=== PATIENT | male | born 1980 | race Caucasian/White ===

== ENCOUNTER 2016-07-26 11:38 | Inpatient (IN) | payer BC ==
[2016-07-26] MEDS ORDERED: PROMETHAZINE HCL INJ 25 MG/ML VIAL ONE (11:43)
--- NOTE | 2016-07-26 11:43 | ED.PDOC ---
History of Present Illness - General Chief Complaint: General Stated Complaint: vomiting blood Time Seen by Provider: 07/26/16 11:41 Source: patient, RN notes reviewed Exam Limitations: no limitations - History of Present Illness Initial Comments: Johnny Marin 35 y/o male was brought by his dad to [facility] ER after he was found on the floor vomiting and with blood tinged emesis.According to mom his co worker told her that he was talking incoherently at work and went to the bathroom and was there for almost an hour and someone went to see him and was found on the floor throwing up. He stated that he had left sided throbbing headache on his way home from work which went away after he slept stating he has the right sided retrorbital headache when his blood pressure go up.He ate dinner went back to sleep.Then this am went to work then developed above symptoms.Denies any chest pain,headache blurry vision,abdominal pain. Timing/Duration: 1-3 hours, constant Severity: moderate Improving Factors: nothing Worsening Factors: nothing Associated Symptoms: denies symptoms Allergies/Adverse Reactions: Allergies NO KNOWN ALLERGY Allergy (Verified 07/26/16 12:07) Home Medications: Ambulatory Orders Lisinopril 40 mg PO DAILY 07/26/16 Review of Systems - Review of Systems Constitutional: States: no symptoms reported EENTM: States: no symptoms reported Respiratory: States: no symptoms reported Cardiology: States: no symptoms reported Gastrointestinal/Abdominal: States: see HPI Genitourinary: States: no symptoms reported Musculoskeletal: States: no symptoms reported Skin: States: no symptoms reported Neurological: States: no symptoms reported Endocrine: States: no symptoms reported Hematologic/Lymphatic: States: no symptoms reported Past Medical History (General) - Patient Medical History Hx Hypertension: Yes Surgical History: appendectomy - Social History Hx Tobacco Use: No Hx Alcohol Use: No Hx Substance Use: No Hx Depression: No Family Medical History - Family History Father Hx Family Hypertension: Yes Hx Family Diabetes: Yes Hx Family Cancer: No Physical Exam - Physical Exam General Appearance: Alert, No apparent distress Eye Exam: bilateral normal Ears, Nose, Throat: hearing grossly normal, normal ENT inspection, normal pharynx Neck: non-tender, full range of motion, supple Respiratory: chest non-tender, lungs clear, normal breath sounds, no respiratory distress Cardiovascular/Chest: normal peripheral pulses, regular rate, rhythm, no murmur Peripheral Pulses: radial,right: 2+, radial,left: 2+ Gastrointestinal/Abdominal: normal bowel sounds, non tender, soft, no organomegaly Rectal Exam: normal exam, normal rectal tone, heme negative stool Back Exam: normal inspection, no CVA tenderness, no vertebral tenderness Extremity: normal range of motion, non-tender, normal inspection Neurologic: no motor/sensory deficits, alert, normal mood/affect, oriented x 3 Skin Exam: normal color, warm/dry Lymphatic: no adenopathy Progress - Progress Progress: 07/26/16 13:27 Vital Signs - 8 hr 07/26/16 11:38 Temperature 96.7 F L Pulse Rate 86 Pulse Rate [ 86 Left Radial] Respiratory 26 H Rate Blood Pressure 142/53 [Right Arm] O2 Sat by Pulse 95 Oximetry - Results/Orders Results/Orders: 07/26/16 11:43 URINE DRUG SCREEN, 7 ASSAY Stat URINALYSIS Stat 07/26/16 11:45 EKG STAT 07/26/16 12:51 Potassium Chloride Inj 40 Meq 40 meq Sodium Chloride 0.9% 250Ml [NS 250ml] 250 ml IVPB ONCE 07/26/16 13:03 MAGNESIUM Stat 07/26/16 13:27 ED Intent to Admit Routine Laboratory Results WBC 9.0 K/mm3 (4.8-10.8) 07/26/16 12:05 RBC 5.37 M/mm3 (4.70-6.10) 07/26/16 12:05 Hgb 15.1 gm/dL (14.0-18.0) 07/26/16 12:05 Hct 44.9 % (42.0-52.0) 07/26/16 12:05 MCV 83.6 fl (80.0-94.0) 07/26/16 12:05 MCH 28.0 pg (27.0-31.0) 07/26/16 12:05 MCHC 33.5 g/dL (33.0-37.0) 07/26/16 12:05 RDW 15.3 % (11.5-14.5) H 07/26/16 12:05 Plt Count 182 K/mm3 (130-400) 07/26/16 12:05 MPV 9.5 fl (7.40-10.4) 07/26/16 12:05 Absolute Neuts (auto) 5.10 K/uL (1.8-6.8) 07/26/16 12:05 Absolute Lymphs (auto) 3.00 K/uL (1.0-3.4) 07/26/16 12:05 Absolute Monos (auto) 0.60 K/uL (0.2-0.8) 07/26/16 12:05 Absolute Eos (auto) 0.30 K/uL (0.0-0.4) 07/26/16 12:05 Absolute Basos (auto) 0.10 K/uL (0.0-0.1) 07/26/16 12:05 Neutrophils % 56.1 % (42.0-78.0) 07/26/16 12:05 Lymphocytes % 33.4 % (20.0-50.0) 07/26/16 12:05 Monocytes % 6.6 % (2.0-9.0) 07/26/16 12:05 Eosinophils % 2.9 % (1.0-5.0) 07/26/16 12:05 Basophils % 1.0 % (0.0-2.0) 07/26/16 12:05 PT 11.7 SECONDS (9.4-12.5) 07/26/16 12:05 INR 1.040 07/26/16 12:05 Sodium 140 mmol/L (135-145) 07/26/16 12:05 Potassium 2.6 mmol/L (3.6-5.0) L 07/26/16 12:05 Chloride 106 mmol/L (101-111) 07/26/16 12:05 Carbon Dioxide 21 mmol/L (21-31) 07/26/16 12:05 Anion Gap 15.6 (12-18) 07/26/16 12:05 BUN 11 mg/dL (7-18) 07/26/16 12:05 Creatinine 0.75 mg/dL (0.6-1.3) 07/26/16 12:05 BUN/Creatinine Ratio 14.7 (10-20) 07/26/16 12:05 POC Glucose 123 mg/dL (70-105) H 07/26/16 12:17 Random Glucose 153 mg/dL (70-105) H 07/26/16 12:05 Serum Osmolality 281.8 mOsm/L (275-295) 07/26/16 12:05 Calcium 8.8 mg/dL (8.4-10.2) 07/26/16 12:05 Magnesium Cancelled 07/26/16 12:05 Total Bilirubin 0.9 mg/dL (0.2-1.0) 07/26/16 12:05 AST 106 IU/L (10-42) H 07/26/16 12:05 ALT 162 IU/L (10-60) H 07/26/16 12:05 Alkaline Phosphatase 82 IU/L (42-121) 07/26/16 12:05 Creatine Kinase 86 IU/L (38-174) 07/26/16 12:05 CK-MB (CK-2) 1.0 ng/mL (0.0-4.4) 07/26/16 12:05 CK-MB (CK-2) % Not Reportable 07/26/16 12:05 Troponin I 0.00 ng/mL (0.01-0.05) L 07/26/16 12:05 Serum Total Protein 7.7 gm/dL (6.4-8.2) 07/26/16 12:05 Albumin 4.2 g/dl (3.2-5.5) 07/26/16 12:05 Globulin 3.5 gm/dL (2.3-3.5) 07/26/16 12:05 Albumin/Globulin Ratio 1.2 (1.1-1.9) 07/26/16 12:05 Lipase 20 U/L (22-51) L 07/26/16 12:05 Stool Occult Blood Negative 07/26/16 12:54 Ethyl Alcohol 214.60 mg/dL (0-79) H* 07/26/16 12:05 - EKG/XRAY/CT EKG: Sinus, no ST T wave changes Comments: heart rate-86 XRAY: chest - no acute abnormalities CT Ordered: Yes - head no acute brain abnormalities/radiologist Departure - Departure Clinical Impression: Hypokalemia Hematemesis/vomiting blood Qualifiers: Nausea presence: with nausea Qualified Code(s): K92.0 - Hematemesis; R11.0 - Nausea Headache Qualifiers: Headache type: unspecified Headache chronicity pattern: unspecified pattern Intractability: not intractable Qualified Code(s): R51 - Headache Time of Disposition: 13:29 - D/W Dr. Onofre-Hospitalist for admit Disposition: Admit Patient Condition: Fair Referrals: Felicia Dowell NP [Primary Care Provider] - 1-2 Weeks Home Medications: Ambulatory Orders Lisinopril 40 mg PO DAILY 07/26/16 Decision To Admit - Decistion To Admit Decision to Admit Reason: Admit from ER - low potassium and hematemesis Decision to Admit Date: 07/26/16 Decision to Admit Time: 13:26
[2016-07-26] MEDS ORDERED: PROMETHAZINE HCL INJ 25 MG/ML VIAL IM ONE (11:45)
[2016-07-26] MEDS ORDERED: PANTOPRAZOLE INJECTION 80 MG in SODIUM CHLORIDE 0.9% 100ML 80 ML IVPB ONE (11:46)
[2016-07-26] MEDS ORDERED: LACTATED RINGERS 1,000 ML IVS ONE (11:46)
[2016-07-26] MEDS ORDERED: SODIUM CHLORIDE 0.9% 100ML 100 ML IVPB ONE ×2 (12:13→16:01)
[2016-07-26] MEDS ORDERED: PANTOPRAZOLE SODIUM IV 40 MG VIAL ONE (12:13)
--- NOTE | 2016-07-26 12:44 | RAD ---
EXAM DESCRIPTION: Chest,1 View CLINICAL HISTORY: 79 years Male, nausea IMPRESSION: Cardiomegaly. Pacing device noted. Chronic bronchopulmonary changes seen within bilateral lung bases with infiltrates versus small right pleural effusion. Likely bronchiectasis seen within the right upper lobe. Electronically signed by: Suleiman Velez MD 07/26/2016 8:39 AM CDT
--- NOTE | 2016-07-26 12:48 | CT ---
EXAM DESCRIPTION: Head CLINICAL HISTORY: 35 years, Male, pain COMPARISON: None. FINDINGS: Unenhanced images through the brain. This examination was performed according to our departmental dose optimization program, which includes automatic exposure control, adjustment of the MA and/or kV according to the patient size and/or use of iterative reconstruction technique. No intracranial hemorrhage or mass. Ventricles and sulci unremarkable. Moderate ethmoid sinus mucosal thickening. IMPRESSION: Unremarkable evaluation the brain. Some moderate ethmoid sinus disease present. No air-fluid levels visualized to suggest acute sinusitis Electronically signed by: Naif Botello MD 07/26/2016 12:47 PM CDT
[2016-07-26] MEDS ORDERED: POTASSIUM CHLORIDE INJ 40 MEQ 40 MEQ in SODIUM CHLORIDE 0.9% 250ML 250 ML IVPB ONE (12:51)
[2016-07-26] MEDS ORDERED: POTASSIUM CHLORIDE INJ 20 MEQ 20 MEQ in SODIUM CHLORIDE 0.9% 1000ML 1,000 ML IVS PRN (13:26)
[2016-07-26] MEDS ORDERED: SODIUM CHLORIDE 0.9% (FLUSH) 10 ML SYG IV PRN ×2 (13:42→13:46)
[2016-07-26] MEDS ORDERED: ONDANSETRON INJ 4 MG/2 ML VIAL IV PRN (13:46)
[2016-07-26] MEDS ORDERED: MAGNESIUM HYDROXIDE 30 ML UD PO PRN (13:46)
[2016-07-26] MEDS ORDERED: KCL 20 MEQ/NS 1,000 ML IVS PRN ×2 (13:46→13:55)
[2016-07-26] MEDS ORDERED: KCL 40 MEQ/WATER FOR INJECTION 40 MEQ in PREMIX BAG 1 BAG IVPB ONE (13:54)
[2016-07-26] MEDS ORDERED: THIAMINE HCL INJ 100 MG/ML VIAL IV SCH (14:00)
[2016-07-26] MEDS ORDERED: IV SET AND CAP CHANGE INJ INJ SCH ×2 (14:00)
--- NOTE | 2016-07-26 14:06 | RAD ---
EXAM DESCRIPTION: Chest,1 View CLINICAL HISTORY: 35 years Male, acute onset of chest. IMPRESSION: Single view of the chest demonstrates clear lungs. No pleural effusion or pneumothorax. Heart size is unremarkable. Electronically signed by: Suleiman Velez MD 07/26/2016 2:05 PM CDT
--- NOTE | 2016-07-26 14:11 | HP ---
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 He apparently was up at about 2:30 this morning and drank 4 fingers of whiskey and went to sleep. He awoke at 7:30 and preceded to go to his bank to open the door at about 8:00 o'clock this morning. He went over to his mother's store across the street and got a sweet and an unsweetened tea for a couple of his fellow bank workers and returned to the bank to get ready to open the doors by 9 :00 o'clock. At 8:45 he went into the restroom at the bank and was awakened while being on the floor having gone to the bathroom with his britches still unconnected and people were asking how he was doing. He had been vomiting at the commode and was very foggy-headed. He was able to open the door and they were able to help him to get into a rolling office chair and he was helped to go to the Emergency Room. Even in the Emergency Room his thinking was foggy. In the Emergency Room he was found to have a very high level of alcohol in his blood at 215. No other drugs on under the service of evident. His potassium was very low at 2.6 requiring specific intervention so he was admitted to the hospital with therapy in progress. No previous history of similar symptoms in the past. He admits that he is very tired all the time and as soon as he gets home from work he usually sleeps for awhile, wakes up and then goes back to sleep at a later time but still feels very tired most all the time. He is admitted to the hospital for parenteral treatment of the hypokalemia as well as further evaluation to eval for reasons why the potassium is so low as well as why the alcohol blood level was so high literally 10 hours after drinking a couple of hard alcohol doses. ALLERGIES: PENICILLIN. MEDICATIONS: 1. Lisinopril 40 mg combined with Hydrochlorothiazide of an undetermined amount and it comes in the form of a 20 mg lisinopril tablet which he takes 2 of them which would also double the Hydrochlorothiazide dose of the combination medication. 2. Cholesterol pill. PAST SURGICAL HISTORY: 1. Appendectomy in June 1998. FAMILY HISTORY: Positive for cancer, diabetes, hypertension, chronic obstructive pulmonary disease. PAST MEDICAL HISTORY:: 1. Hypertension which gives him a headache at times when it is especially bad. SOCIAL HISTORY: He works as a banker. He smoked for about 2 years while in the back in 1998 to 2000. REVIEW OF SYSTEMS: VITAL SIGNS: Weight has been over 300 pounds for the last several years. HEENT : Hearing and vision is fairly good. No fever or chills. Difficulty breathing sometimes like he has congested nose for which he takes Dristan or Afrin for to open his nasal passages. LUNGS: Shortness of breath but no coughing. CARDIOVASCULAR: No significant chest pains or palpitations. ABDOMEN: Significant nausea and vomiting noted today but none present at the present time. Abdomen is quite large. No constipation. He does have diarrhea at times , especially aggravated by greasy, spicy foods with occasional blood in his bowel movements. No specific workup otherwise noted in the past. EXTREMITIES: Fairly well formed. NEUROLOGICAL: Generally very weak and history of headaches. PHYSICAL EXAMINATION: VITAL SIGNS: Afebrile. Blood pressure ranges between 128/82 to 149/91. Respirations initially were 26, down to 20, room air saturation was down to 86 up to 97% on room air. His weight is 144 kilos. GENERAL: The patient was noticeably lethargic and somewhat obtunded earlier in the Emergency Room but after abdominal ultrasound and in the hospital itself , even he admitted that he now knows what is going on more clearly and he appears to be normal and more alert and oriented and fully coordinated. HEENT: Unfortunate, though he does have some nasal obstruction.. NECK: Supple, CHEST: Lungs have diminished breath sounds. CARDIOVASCULAR: Heart tones are somewhat distant. No chest pain. ABDOMEN: Very obese, large, distention, no tenderness upon even deep palpation. No organomegaly appreciated.. EXTREMITIES: Well formed. No pedal, no calf tenderness upon compression. Good range of motion. NEUROLOGIC: No focal neurological deficits. The patient is awake, alert, and oriented and communicative. LABORATORY: White count is 9,000, hemoglobin 15.1. INR 1.04. Chemistries show potassium is very low at 2.6, C02 of 21, BUN 11, glucose 123 and up to 153. Calcium 8.8, AST 106, ALT 162 and elevated. Troponin 0. Albumin 4.2 and lipase 20. Magnesium 2.1. Urinalysis clean. Occult blood negative and ethanol level 215. Urine drug screen otherwise negative. No cultures obtained. Head scan and chest x-ray failed to reveal any significant abnormalities. Abdominal ultrasound shows dilation of the common bile duct with widespread fatty infiltration of the liver with no evidence of acute cholecystitis otherwise evident. ASSESSMENT: 1. Acute syncopal episode with loss of consciousness with amnesia with no evidence head injury. 2. Significant symptomatic hypokalemia possibly aggravated by the vomiting yet probably has a relationship to the increased dose of Hydrochlorothiazide used as part of his antihypertensive program. 3. Acute ethanol toxicity. 4. Acute alcoholic gastritis. 5. Elevated liver enzymes. 6. Chronic fatigue, rule out hypothyroidism, physical deconditioning versus significant sleep apnea contributing. 7. Dilated common duct. 8. Marked exogenous obesity no doubt contributing to a possible underlying condition of sleep apnea. 9. History of hypertension on medication treatment. 10. Mild sinusitis with chronic nasal constrictive medication usage. PLAN: The patient is admitted to the hospital for parenteral therapy and supplementation of the significant hypokalemic state. Fluids IV given, special attention to observe for improvement in mental functioning. Carafate and Prilosec are used for the significant gastritis possibly contributing o the nausea and vomiting. Will arrange with respiratory therapy department to get a sleep apnea study with a sleep study as soon as possible. Encouraged to stop all alcohol which will help the fatty infiltration of the liver the elevated liver enzymes, dilated common duct, etc. Close followup of the blood pressure. Stop Hydrochlorothiazide and continue with potassium supplementation. Reevaluation in the morning. #[id number] [facility]
--- NOTE | 2016-07-26 15:09 | US ---
Procedure: US ABDOMEN LIMITED Exam Date: 07/26/2016 Ordering Provider: RENA STRONG MD Clinical Indication: vomiting, hypokalemia,abd pain,GB disease? Comparison: None Technique: Real-time ultrasonography was obtained over the abdominal viscera and retail service representative images were recorded. Findings: The liver is normal in size and contour. There is diffuse increased echogenicity of the liver consistent with fatty infiltration. There are no intrahepatic masses. There is no intrahepatic ductal dilatation. The gallbladder is normal in size and appearance. There are no gallstones. There is no gallbladder wall thickening or pericholecystic fluid. Negative Vaca's. The extrahepatic common duct is dilated in size measuring 11 mm. The visualized portions of the pancreas are normal. There is no ascites. Impression: 1. Dilatation of the common bile duct. No obstructing mass lesions or stones are visualized. Consider further evaluation with ERCP or MRCP 2. Hepatic steatosis. 3. No evidence of acute cholecystitis. Electronically signed by: Rohan Urbano MD 07/26/2016 3:09 PM CDT
[2016-07-26] MEDS: SUCRALFATE 1 GM/10 ML 1 GM UD PO SCH ×2 (15:52→20:36)
[2016-07-26] MEDS: PRENATAL MULTIVIT-MIN W/FE-FA 1 EA TAB PO SCH ×2 (15:52→20:36)
[2016-07-26] MEDS ORDERED: THIAMINE HCL INJ 100 MG/ML VIAL ONE (16:01)
[2016-07-26] MEDS: THIAMINE HCL INJ 100 MG in SODIUM CHLORIDE 0.9% 100ML 100 ML IVPB SCH (16:22)
[2016-07-26] MEDS: ALBUTEROL SULFATE 2.5 MG/3 ML VIAL NEB SCH ×3 (16:32→21:03)
[2016-07-26] MEDS: amLODIPine BESYLATE 5 MG TAB PO SCH (18:16)
[2016-07-26] MEDS ORDERED: ACETAMINOPHEN 325 MG TAB PO PRN (19:10)
[2016-07-26] MEDS ORDERED: OMEPRAZOLE CAP 20 MG CAP ONE (20:18)
[2016-07-26] MEDS: LISINOPRIL 10 MG TAB PO SCH (20:36)
[2016-07-27] MEDS ORDERED: POTASSIUM CHLORIDE 10 MEQ TAB PO SCH ×2 (00:30→17:00)
[2016-07-27] MEDS: SUCRALFATE 1 GM/10 ML 1 GM UD PO SCH ×3 (06:07→15:54)
[2016-07-27] MEDS ORDERED: OMEPRAZOLE CAP 20 MG CAP PO SCH (06:30)
[2016-07-27] MEDS ORDERED: THIAMINE HCL INJ 100 MG/ML VIAL ONE ×2 (08:12→08:17)
[2016-07-27] MEDS ORDERED: SODIUM CHLORIDE 0.9% 100ML 100 ML IVPB ONE (08:13)
[2016-07-27] MEDS: LISINOPRIL 10 MG TAB PO SCH (08:28)
[2016-07-27] MEDS: amLODIPine BESYLATE 5 MG TAB PO SCH (08:28)
[2016-07-27] MEDS: THIAMINE HCL INJ 100 MG in SODIUM CHLORIDE 0.9% 100ML 100 ML IVPB SCH (08:31)
[2016-07-27] MEDS: PRENATAL MULTIVIT-MIN W/FE-FA 1 EA TAB PO SCH (08:32)
[2016-07-27] MEDS: ALBUTEROL SULFATE 2.5 MG/3 ML VIAL NEB SCH ×2 (08:34→13:29)
[2016-07-27] MEDS ORDERED: LISINOPRIL 10 MG TAB PO SCH (09:00)
[2016-07-27 10:49] VITALS: BP 145/93; TEMP 97.1; O2SAT 97
--- NOTE | 2016-07-27 20:03 | DS ---
DISCHARGE DIAGNOSIS: 1. Acute syncopal episode with loss of consciousness and amnesia with no evidence of head injury. 2. Significant symptomatic hypokalemia possibly aggravated by the vomiting yet probably as a relationship to fairly large doses of Hydrochlorothiazide combined with the Lisinopril in his antihypertensive treatment program. 3. Acute ethanol toxicity. 4. Acute alcoholic gastritis. 5. Elevated liver enzymes showing improvement. 6. Chronic fatigue with probable physical deconditioning contributing significantly, yet the possibility of chronic sleep apnea and poor quality of sleep must be considered and evaluated for. 7. Dilated common duct with followup suggested and a low fat diet. 8. Marked exogenous obesity no doubt contributing to possible underlying condition of sleep apnea. 9. History of hypertension on medication treatment. 10. Mild sinusitis with chronic nasal constrictive medication usage. 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 It was at this time that he expressed confusion as to where he was and the situation that he was under, and he was brought by ambulance to the [facility] Even in the E[facility] his recollection and memory is sketchy until approximately an hour after he was admitted to the hospital for continued treatment course. In the Emergency Room, he was found to have a potassium very low at 2.6 with a high alcohol level, elevated liver enzymes and a confusion state. He was admitted to the hospital for stabilization with supplementation of the potassium, some fluid as well because of the vomiting, and neuro vitals, and close followup and support. LABORATORY: White count 9,000, hemoglobin 15.1. INR of 1.04. Chemistries showed initial potassium of 2.6 and with supplementation it was up to 3.6, BUN 10, creatinine 0.74, glucose was 153, calcium 8.8. Liver enzymes were elevated with AST 106 down to 88 and ALT 162 down to 134 with bilirubin of 1.4. Troponin was zero. Beta natriuretic peptide 15.5. Albumin 3.7, TSH 0.69, hemoglobin A1c 5.5. Urinalysis clean. Stool guaiac on 1 test was negative. Ethyl alcohol level 215 and urine drug screen negative. No cultures obtained. RADIOLOGY: X-ray of the head and chest showed no acute findings. Abdominal ultrasound did show some dilation of the common duct up to 11 mm with some hepatic fatty infiltration. HOSPITAL COURSE: The patient was feeling much improved on the day of discharge. He had increased activity and was observed to tolerate it well. His diet was advanced to a soft, low fat diet to which he did tolerate it quite well. His family is present and will continue to assist with watching him. He is advised that he could go back to work on Monday. PLAN: The patient is discharged home to have followup with Nelly Pérez this next week with a repeat blood study for electrolytes to follow the potassium level. To avoid alcohol. Closely monitor the blood pressure. Start blood pressure control by Lisinopril alone and stopping the Hydrochlorothiazide. To take 20 mg Lisinopril daily but to increase to twice a day if needed. May also try Norvasc 5 mg at evening time to assist with blood pressure control with the Lisinopril. Try multivitamin daily. Be active and continue with a good weight control program, and proceed with a sleep study to be scheduled to rule out sleep apnea causing weakness and marked sleepiness during the day. Return if not improving. #[id number] [facility]
== END 2016-07-27 15:30 | disposition home or self-care (01) | DRG 392 ==
LOC: ER 11:38 → MS 14:09 → OBSVTOIN 14:09
PROVIDERS: ADMIT Emergency Medicine; ATTEND Emergency Medicine
DX: K29.20 Alcoholic gastritis without bleeding (principal); K92.0 Hematemesis; Z68.42 Body mass index [BMI] 45.0-49.9, adult; T51.0X1A Toxic effect of ethanol, accidental (unintentional), initial encounter; E87.6 Hypokalemia; I10 Essential (primary) hypertension; R74.8 Abnormal levels of other serum enzymes; R53.82 Chronic fatigue, unspecified; J32.9 Chronic sinusitis, unspecified; R51 Headache; Y90.7 Blood alcohol level of 200-239 mg/100 ml; Y92.009 Unspecified place in unspecified non-institutional (private) residence as the place of occurrence of the external cause; Z87.891 Personal history of nicotine dependence; Z88.0 Allergy status to penicillin; Z79.899 Other long term (current) drug therapy; E66.9 Obesity, unspecified; R55 Syncope and collapse

== ENCOUNTER → 2016-08-20 | Outpatient (CLI) | payer BC | END | disposition home or self-care (01) | LOC: YCFC.O 09:17 | PROVIDERS: ATTEND Nurse Practitioner Family | DX: E89.6 Postprocedural adrenocortical (-medullary) hypofunction (principal); K76.0 Fatty (change of) liver, not elsewhere classified; E78.2 Mixed hyperlipidemia ==

== ENCOUNTER → 2016-10-17 | Outpatient (CLI) | payer BC | LOC: LAB.O 11:00 | PROVIDERS: ATTEND Internal Medicine Gastroenterology | DX: R94.5 Abnormal results of liver function studies (principal) ==

== ENCOUNTER → 2016-10-19 | Outpatient (CLI) | payer BC ==
--- NOTE | 2016-10-20 10:41 | MRI ---
EXAM DESCRIPTION: Abdomen MRI Abdomen CLINICAL HISTORY: 36 years, Male, GALLBLADDER DISORDER COMPARISON: Ultrasound examination July 26 FINDINGS: Axial T1, T2, diffusion and phase sequences obtained. Coronal T2 sequences. MRCP images obtained. MIP reformats obtained. No suspicious parenchymal lesions although the spleen size at 14 cm is mildly enlarged. The MRCP images show normal appearance of the common bile duct which measures about 4 mm in diameter. Pancreatic duct is not well evaluated on the MRCP images. However, no suspicious pancreatic findings on the other sequences IMPRESSION: 1. The common bile duct on this examination measures about 4 mm which is normal. There are no suspicious abnormalities in the visualized intrahepatic ducts or common hepatic duct 2. Spleen size at 14 cm is mildly enlarged. Please correlate clinically. 3. remainder of the study is unremarkable. Electronically signed by: Naif Botello MD 10/20/2016 10:39 AM CDT
== END ==
LOC: MRI 14:09
PROVIDERS: ATTEND Internal Medicine Gastroenterology
DX: K83.8 Other specified diseases of biliary tract (principal)

== ENCOUNTER → 2018-03-16 | Outpatient (CLI) | payer BC | LOC: YCFC.O 09:46 | PROVIDERS: ATTEND Nurse Practitioner Family | DX: R03.0 Elevated blood-pressure reading, without diagnosis of hypertension (principal); E78.00 Pure hypercholesterolemia, unspecified ==

== ENCOUNTER 2018-12-11 17:12 | Emergency (ER) | payer BC ==
[2018-12-11 17:24] VITALS: TEMP 98.3; O2SAT 99
[2018-12-11] MEDS ORDERED: DEXAMETHASONE INJ 10 MG/ML VIAL IM ONE (17:27)
--- NOTE | 2018-12-11 17:32 | ED.PDOC ---
History of Present Illness - General Chief Complaint: Neuro Symptoms/Deficits Stated Complaint: left sided facial numbness Time Seen by Provider: 12/11/18 17:21 - History of Present Illness Initial Comments: 38 yo M PMH HTN presents to ED at bedside c/o numbness to left face change in taste of left side of tongue inability to close left eye and inability to raise left eyebrow x 5 days. Denies fever chills nausea vomiting diarrhea chest pain sob diaphoresis. No change in diet rest bowel or bladder has PMD for follow up at [facility] denies drinking or smoking admits FH HTN DM no other c/o today. Also reports strong FH of Child's Palsy. Allergies/Adverse Reactions: Allergies NO KNOWN ALLERGY Allergy (Verified 07/26/16 12:07) Home Medications: Ambulatory Orders Lisinopril 20 mg PO QAM #30 tab 07/27/16 amLODIPine BESYLATE [Norvasc] 5 mg PO QPM #30 tab 07/27/16 Polyvinyl Alcohol [Artificial Tears] 1.4 % OP QID #1 bottle 12/11/18 Prednisone 60 mg PO DAILY 7 Days #21 tab 12/11/18 Valacyclovir HCl [Valtrex] 1 gm PO TID 7 Days #21 tab 12/11/18 Review of Systems - Review of Systems Constitutional: States: see HPI EENTM: States: see HPI, tearing Respiratory: States: see HPI Cardiology: States: see HPI Gastrointestinal/Abdominal: States: see HPI Genitourinary: States: see HPI Musculoskeletal: States: see HPI Skin: States: see HPI Neurological: States: see HPI Endocrine: States: see HPI Hematologic/Lymphatic: States: see HPI All other Systems: Reviewed and Negative Past Medical History (General) - Patient Medical History Hx Seizures: No Hx Stroke: No Hx Asthma: No Hx of COPD: No Hx Congestive Heart Failure: No Hx Pacemaker: No Hx Hypertension: No Hx Diabetes: No Hx MRSA: No Surgical History: appendectomy - Vaccination History Hx Influenza Vaccination: No Hx Pneumococcal Vaccination: No - Social History Hx Tobacco Use: No Hx Alcohol Use: No Hx Substance Use: No Hx Depression: No Hx Physical Abuse: No Hx Emotional Abuse: No Family Medical History - Family History Father Hx Family Hypertension: Yes Hx Family Diabetes: Yes Hx Family Cancer: No Mother Living Status: Still Living Hx Family Asthma: No Hx Family Congestive Heart Failure: No Hx Family Hypertension: Yes Hx Family Stroke: No Hx Cardiac Disease: No Hx Family Diabetes: No Hx Family Cancer: No Physical Exam - Physical Exam General Appearance: No apparent distress Eye Exam: left other - Inability to close left eye fully, bilateral normal Ears, Nose, Throat: normal ENT inspection Neck: non-tender, full range of motion Respiratory: normal breath sounds Cardiovascular/Chest: regular rate, rhythm Gastrointestinal/Abdominal: non tender, soft Rectal Exam: deferred Back Exam: normal inspection 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 Copy, Patient Portal Self Enrollment Instructions: Child's Palsy (DC) Diet: resume usual diet Referrals: Niki Fleming FNP [Primary Care Provider] - 1-2 Days Prescriptions: Polyvinyl Alcohol [Artificial Tears] 1.4 % OP QID #1 bottle Prednisone 60 mg PO DAILY 7 Days #21 tab Valacyclovir HCl [Valtrex] 1 gm PO TID 7 Days #21 tab Home Medications: Ambulatory Orders Lisinopril 20 mg PO QAM #30 tab 07/27/16 amLODIPine BESYLATE [Norvasc] 5 mg PO QPM #30 tab 07/27/16 Polyvinyl Alcohol [Artificial Tears] 1.4 % OP QID #1 bottle 12/11/18 Prednisone 60 mg PO DAILY 7 Days #21 tab 12/11/18 Valacyclovir HCl [Valtrex] 1 gm PO TID 7 Days #21 tab 12/11/18
[2018-12-11 18:30] VITALS: BP 128/87
== END 2018-12-11 17:58 | disposition home or self-care (01) ==
LOC: ER 17:12
DX: G51.0 Bell's palsy (principal); Z79.899 Other long term (current) drug therapy

== ENCOUNTER 2019-10-08 10:23 | Emergency (ER) | payer BC ==
--- NOTE | 2019-10-08 10:30 | ED.PDOC ---
History of Present Illness - General Time Seen by Provider: 10/08/19 10:29 Source: patient - History of Present Illness Initial Comments: 39-year-old male with past medical history of hypertension, obesity presents the ED with chief complaint of left lower back pain and abdominal pain. Onset this morning when he woke up, located to the left lower back with radiation around the left side of the left lower quadrant of the abdomen, constant, sharp/stabb ing, waxing and waning, currently 8/10 severity, cannot get comfortable, no medications taken for relief, associated with nausea without emesis. Reports it feels like he needs to defecate. He did have a normal stool this morning but it did not relieve his pain. He reports normal urination without burning or hematuria. Denies any fevers, chills, chest pain, dyspnea, diarrhea. No history of similar symptoms in the past. Patient is presently taking blood pressure medicine but he states he ran out over a year ago and has been off his medications. He was trying to get back into the doctor but having a difficult time given the pandemic. Was seeing Mae Vu. States he has hx of IBS and has seen a GI doc (Dr. Hankins) before but reports no diagnoses of IBD to his knowledge. States he has had some blood in the stool in the past but none recently. Only prior abd surgery is appendectomy >20 years ago. Allergies/Adverse Reactions: Allergies NO KNOWN ALLERGY Allergy (Verified 10/08/19 10:53) Home Medications: Ambulatory Orders Lisinopril 20 mg PO QAM #30 tab 07/27/16 amLODIPine BESYLATE [Norvasc] 5 mg PO QPM #30 tab 07/27/16 Polyvinyl Alcohol [Artificial Tears] 1.4 % OP QID #1 bottle 12/11/18 Prednisone 60 mg PO DAILY 7 Days #21 tab 12/11/18 Valacyclovir HCl [Valtrex] 1 gm PO TID 7 Days #21 tab 12/11/18 Ciprofloxacin HCl [Cipro] 500 mg PO BID 7 Days #14 tab 10/08/19 Ondansetron Odt [Zofran ODT] 8 mg PO Q8H PRN 5 Days #10 tab 10/08/19 Tamsulosin [Flomax] 0.4 mg PO QD 7 Days #7 cap 10/08/19 Review of Systems - Review of Systems Review of Systems: 10/08/19 10:44 as per HPI All other Systems: Reviewed and Negative Past Medical History (General) - Patient Medical History Hx Seizures: No Hx Stroke: No Hx Asthma: No Hx of COPD: No Hx Congestive Heart Failure: No Hx Pacemaker: No Hx Hypertension: No Hx Diabetes: No Hx MRSA: No - Vaccination History Hx Influenza Vaccination: No Hx Pneumococcal Vaccination: No - Social History Hx Tobacco Use: No Hx Alcohol Use: No Hx Substance Use: No Hx Depression: No Hx Physical Abuse: No Hx Emotional Abuse: No Family Medical History - Family History Father Hx Family Hypertension: Yes Hx Family Diabetes: Yes Hx Family Cancer: No Mother Living Status: Still Living Hx Family Asthma: No Hx Family Congestive Heart Failure: No Hx Family Hypertension: Yes Hx Family Stroke: No Hx Cardiac Disease: No Hx Family Diabetes: No Hx Family Cancer: No Physical Exam - Physical Exam General Appearance: Alert, No apparent distress, Restless Eye Exam: right normal, left other - eye patch in place Ears, Nose, Throat: normal ENT inspection Neck: non-tender, full range of motion, normal inspection Respiratory: lungs clear, normal breath sounds, no respiratory distress, no accessory muscle use Cardiovascular/Chest: normal peripheral pulses, regular rate, rhythm, no edema, no gallop, no JVD, no murmur Peripheral Pulses: radial,right: 2+, radial,left: 2+ Gastrointestinal/Abdominal: normal bowel sounds, soft, no organomegaly, no pulsatile mass, tenderness - moderate to LLQ w/o guarding/rebound Back Exam: normal inspection, CVA tenderness (L) - moderate lower Extremity: normal range of motion, non-tender, normal inspection, no pedal edema, no calf tenderness, normal capillary refill 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 Consider also UTI/pyelo, ruptured AAA/iliac aneurysm, intraabdominal abscess, diverticulitis, back strain, constipation, gastroenteritis/colitis, other -BP 180s/120s on arrival, remainder of vitals stable -stat bloodwork, UA, lactate -place PIV, 1 L NS bolus, Toradol 30 mg IV, morphine 5 mg IV for pain, Zofran 4 mg IV -CT A/P w/o contrast 10/08/19 12:24 -CT of the abdomen pelvis reveals no acute processes. There is no evidence of kidney stone. However patient reports that he had urinated just prior to CT imaging after receiving his pain medications and IV fluids and he felt a burning stinging sensation during urination and since then his flank and abdominal pain has been totally resolved. Thus I suspect that he passed a kidney stone on the left side likely just prior to the CT scan. -Labs significant for UA with large blood, >50 RBCs, 0 WBC, neg nitrites. CBC with slightly elevated WBC count, K 3.3 (replenished orally in ED), otherwise largely unremarkable. -Discussed all findings with patient and diagnosis of left kidney stone. Will place on oral Cipro 500 mg twice daily for 7 days in case of developing urinary tract infection. Also send home with prescription of Zofran PRN. -Discharged home in good condition, return warnings discussed at length. Enoc Herrera MD Billing #[id number] Laboratory Results - last 24 hr 10/08/19 10/08/19 10/08/19 10:35 10:35 10:35 WBC 11.9 H RBC 5.25 Hgb 14.4 Hct 41.3 L MCV 78.7 L MCH 27.5 MCHC 34.9 RDW 15.3 H Plt Count 253 MPV 9.1 Absolute Neuts (auto) 9.00 H Absolute Lymphs (auto) 2.10 Absolute Monos (auto) 0.70 Absolute Eos (auto) 0.10 Absolute Basos (auto) 0.00 Neutrophils % 75.6 Lymphocytes % 17.7 L Monocytes % 5.7 Eosinophils % 0.6 L Basophils % 0.4 Sodium 141 Potassium 3.3 L Chloride 107 Carbon Dioxide 23 Anion Gap 14.3 BUN 14 Creatinine 0.82 BUN/Creatinine Ratio 17.1 Random Glucose 157 H Serum Osmolality 285.0 Lactic Acid 1.5 Calcium 9.2 Total Bilirubin 1.1 H Direct Bilirubin 0.2 Indirect Bilirubin 0.9 H AST 33 ALT 53 Alkaline Phosphatase 82 Serum Total Protein 7.8 Albumin 4.3 Amylase 51 Lipase 22 Urine Color Urine Appearance Urine pH Ur Specific [place] Urine Protein Urine Glucose (UA) Urine Ketones Urine Blood Urine Nitrite Urine Bilirubin Urine Urobilinogen Ur Leukocyte Esterase Urine RBC Urine WBC Ur Epithelial Cells Urine Bacteria 10/08/19 12:15 WBC RBC Hgb Hct MCV MCH MCHC RDW Plt Count MPV Absolute Neuts (auto) Absolute Lymphs (auto) Absolute Monos (auto) Absolute Eos (auto) Absolute Basos (auto) Neutrophils % Lymphocytes % Monocytes % Eosinophils % Basophils % Sodium Potassium Chloride Carbon Dioxide Anion Gap BUN Creatinine BUN/Creatinine Ratio Random Glucose Serum Osmolality Lactic Acid Calcium Total Bilirubin Direct Bilirubin Indirect Bilirubin AST ALT Alkaline Phosphatase Serum Total Protein Albumin Amylase Lipase Urine Color Dk yellow Urine Appearance Sl cloudy Urine pH 7.0 Ur Specific [place] 1.020 Urine Protein 30 Urine Glucose (UA) Negative Urine Ketones 15 H Urine Blood Large H Urine Nitrite Negative Urine Bilirubin Negative Urine Urobilinogen 1.0 Ur Leukocyte Esterase Negative Urine RBC >50 H Urine WBC 0 Ur Epithelial Cells 0-1 Urine Bacteria 0 - EKG/XRAY/CT CT Ordered: Yes Departure - Departure Clinical Impression: Kidney stone on left side Urinary tract infection Qualifiers: Urinary tract infection type: acute cystitis Hematuria presence: without hematuria Qualified Code(s): N30.00 - Acute cystitis without hematuria Time of Disposition: 12:21 Disposition: Discharge to Home or Self Care Condition: Good Instructions: Kidney Stones (DC) Diet: resume usual diet Activity: increase activity as tolerated Referrals: Niki Fleming FNP [Primary Care Provider] - 1-2 Weeks Prescriptions: Ciprofloxacin HCl [Cipro] 500 mg PO BID 7 Days #14 tab Tamsulosin [Flomax] 0.4 mg PO QD 7 Days #7 cap Ondansetron Odt [Zofran ODT] 8 mg PO Q8H PRN 5 Days #10 tab PRN Reason: Nausea Home Medications: Ambulatory Orders Lisinopril 20 mg PO QAM #30 tab 07/27/16 amLODIPine BESYLATE [Norvasc] 5 mg PO QPM #30 tab 07/27/16 Polyvinyl Alcohol [Artificial Tears] 1.4 % OP QID #1 bottle 12/11/18 Prednisone 60 mg PO DAILY 7 Days #21 tab 12/11/18 Valacyclovir HCl [Valtrex] 1 gm PO TID 7 Days #21 tab 12/11/18 Ciprofloxacin HCl [Cipro] 500 mg PO BID 7 Days #14 tab 10/08/19 Ondansetron Odt [Zofran ODT] 8 mg PO Q8H PRN 5 Days #10 tab 10/08/19 Tamsulosin [Flomax] 0.4 mg PO QD 7 Days #7 cap 10/08/19 Additional Instructions: Remain well-hydrated and gradually advance your diet and activity level as tolerated. You may take the Zofran as directed for nausea. Take the antibiotics as directed and finish the full course even if well. If you continue to have trouble urinating or flank pain, fill the Flomax prescription and take as directed. Return to the ED if you develop worsening flank or abdominal pain, intractable nausea vomiting, blood in the urine or stool, fevers, chills, or other concerning symptoms. Otherwise follow-up with your primary care physician is recommended in the next 1 to 2 weeks or sooner as needed.
[2019-10-08] MEDS: SODIUM CHLORIDE 0.9% 1000ML 1,000 ML IVS ONE (10:41)
[2019-10-08] MEDS: SODIUM CHLORIDE 0.9% (FLUSH) 10 ML SYG IV PRN (10:42)
[2019-10-08] MEDS: ONDANSETRON INJ 4 MG/2 ML VIAL IV ONE (10:42)
[2019-10-08] MEDS: KETOROLAC TROMETHAMINE INJ 30 MG/ML VIAL IV ONE (10:44)
[2019-10-08] MEDS: MORPHINE SULFATE INJ 10 MG/ML VIAL IV ONE (10:46)
[2019-10-08] MEDS ORDERED: SODIUM CHLORIDE 0.9% 50ML 50 ML ONE (11:25)
[2019-10-08] MEDS ORDERED: fentaNYL CITRATE INJ 50 MCG/ML AMP ONE (11:25)
[2019-10-08] MEDS ORDERED: PROMETHAZINE HCL INJ 25 MG/ML VIAL ONE (11:25)
[2019-10-08] MEDS: PROMETHAZINE HCL INJ 12.5 MG in SODIUM CHLORIDE 0.9% 50ML 50 ML IVPB ONE (11:26)
[2019-10-08] MEDS: fentaNYL CITRATE INJ 50 MCG/ML AMP IV ONE (11:27)
--- NOTE | 2019-10-08 12:30 | CT ---
EXAM: Abdoment/Pelvis w/o Contrast CLINICAL HISTORY: Left flank pain, LLQ pain, vomiting COMPARISON STUDY: None TECHNIQUE: Non-oral, non-IV contrast CT images were obtained through the abdomen and pelvis. Coronal and sagittal reconstructions were acquired. FINDINGS: The visible portion of the chest shows clear lungs. The heart is not enlarged. The aorta is non-dilated. There is a 3 mm calculus in the lower pole of the right kidney. There is mild left-sided caliectasis but no identifiable ureteral calculus. There are mild stranding changes along the left ureter which could indicate recent passage of a calculus. Alternatively, a radiolucent obstructing etiology is a possibility. Solid organ evaluation is limited without IV contrast administration. The unenhanced images of the liver, spleen, pancreas, and adrenal glands demonstrate no visible abnormality. The gallbladder is present. Bowel evaluation is limited without oral contrast administration. There is no bowel obstruction/dilatation. The appendix is removed. There are no mesenteric inflammatory changes. Pelvic structures are negative. There are no significant bone abnormalities. CONCLUSION: 1. Mild left-sided caliectasis without a visible obstructing calculus could indicate a recently passed calculus, radiolucent calculus or partial obstruction from a radiolucent etiology. 2. 3 mm right lower pole renal calculus. This exam was performed according to our departmental dose-optimization program, which includes automated exposure control, adjustment of the mA and/or kV according to patient size and/or use of iterative reconstruction technique. . Electronically signed by: Doug Mishra MD 10/08/2019 12:29 PM CDT
[2019-10-08 12:40] VITALS: BP 133/78; TEMP 97.5; O2SAT 95
[2019-10-08] MEDS: POTASSIUM CHLORIDE 20 MEQ TAB PO ONE (12:44)
[2019-10-08] MEDS: CIPROFLOXACIN 500 MG TAB PO ONE (12:44)
== END 2019-10-08 12:40 | disposition home or self-care (01) ==
LOC: ER 10:23
DX: N30.00 Acute cystitis without hematuria (principal); N20.0 Calculus of kidney
CPT/HCPCS: 36415; 74176; 80048; 80076; 81001; 82150; 83605; 83690; 85025; A4216; J1885; J2270; J2405; J2550; J3010; J7030

== ENCOUNTER 2019-11-21 02:17 | Emergency (ER) | payer BC ==
[2019-11-21 02:37] VITALS: TEMP 97
[2019-11-21] MEDS ORDERED: MORPHINE SULFATE INJ 10 MG/ML VIAL IV ONE ×2 (02:41→03:56)
[2019-11-21] MEDS ORDERED: ACETAMINOPHEN 500 MG TAB PO ONE (02:41)
[2019-11-21] MEDS ORDERED: SODIUM CHLORIDE 0.9% 1000ML 1,000 ML IVS ONE ×3 (02:41→03:56)
[2019-11-21] MEDS ORDERED: ONDANSETRON INJ 4 MG/2 ML VIAL IV ONE ×2 (02:41→03:56)
[2019-11-21] MEDS ORDERED: TAMSULOSIN 0.4 MG CAP PO ONE (02:43)
[2019-11-21] MEDS ORDERED: KETOROLAC TROMETHAMINE INJ 30 MG/ML VIAL IV ONE ×2 (02:46→03:56)
--- NOTE | 2019-11-21 02:46 | ED.PDOC ---
History of Present Illness - History of Present Illness Initial Comments: 39 yo M PMH HTN Kidney Stones presents to ED in obvious discomfort at bedside c/o right sided flank pain radiating to front of abdomen with nausea vomiting non bilious non bloody today. Last similar episode was 2 months ago. Denies fever cough sob recent travel or contact with covid19. Denies fever chills admits nausea vomiting non bilious non bloody denies diarrhea chest pain sob diaphoresis. No change in diet rest bowel or bladder. Denies drinking or smoking admits FH HTN DM has PMD for follow up at [facility]. No other c/o today. PPE worn-N95 surgical mask with attached face shield over N95 gloves and face shield over that <Mo Gonzalez - Last Filed: 11/21/19 06:59> - General Source: patient, RN notes reviewed, Vital Signs reviewed, family - Exam Limitations: no limitations - History of Present Illness Initial Comments: Patient is a 39-year-old white male who presents with complaints of right flank pain that radiates to the right abdomen and groin. Patient had a similar episode on the left 2 months ago. Prior to that time patient had never had symptoms like this. 2 months ago patient was diagnosed with a kidney stone. Patient's had some mild nausea and vomiting, he denies any fevers or symptoms. Timing/Duration: other - Last 12 hours Severity: moderate Improving Factors: nothing Worsening Factors: nothing Associated Symptoms: denies symptoms <Fredis Bernard - Last Filed: 11/21/19 07:46> - General Chief Complaint: Problem Stated Complaint: pain with urination, back pain Time Seen by Provider: 11/21/19 02:33 - History of Present Illness Allergies/Adverse Reactions: Allergies NO KNOWN ALLERGY Allergy (Verified 10/08/19 10:53) Home Medications: Ambulatory Orders Lisinopril 20 mg PO QAM #30 tab 07/27/16 amLODIPine BESYLATE [Norvasc] 5 mg PO QPM #30 tab 07/27/16 Polyvinyl Alcohol [Artificial Tears] 1.4 % OP QID #1 bottle 12/11/18 Prednisone 60 mg PO DAILY 7 Days #21 tab 12/11/18 Valacyclovir HCl [Valtrex] 1 gm PO TID 7 Days #21 tab 12/11/18 Ciprofloxacin HCl [Cipro] 500 mg PO BID 7 Days #14 tab 10/08/19 Ondansetron Odt [Zofran ODT] 8 mg PO Q8H PRN 5 Days #10 tab 10/08/19 Tamsulosin [Flomax] 0.4 mg PO QD 7 Days #7 cap 10/08/19 Tamsulosin [Flomax] 0.4 mg PO QPM #10 cap 11/21/19 Review of Systems - Review of Systems Constitutional: States: see HPI EENTM: States: see HPI Respiratory: States: see HPI Cardiology: States: see HPI Gastrointestinal/Abdominal: States: see HPI Genitourinary: States: see HPI Musculoskeletal: States: see HPI Skin: States: see HPI Neurological: States: see HPI Endocrine: States: see HPI All other Systems: Reviewed and Negative <Mo Gonzalez - Last Filed: 11/21/19 06:59> - Review of Systems Constitutional: States: no symptoms reported, see HPI. Denies: chills, fever, malaise, weakness EENTM: States: no symptoms reported. Denies: eye pain, blurred vision, double vision Respiratory: States: no symptoms reported. Denies: cough, short of breath, wheezing Cardiology: Denies: no symptoms reported, chest pain, palpitations, syncope Gastrointestinal/Abdominal: States: see HPI, abdominal pain, nausea, vomiting. Denies: constipation, diarrhea Genitourinary: States: see HPI, frequency. Denies: dysuria, hematuria Musculoskeletal: States: see HPI, back pain. Denies: joint pain, neck pain Skin: States: no symptoms reported. Denies: change in color, rash Neurological: States: no symptoms reported. Denies: tingling, tremors, weakness Endocrine: States: no symptoms reported. Denies: intolerance to cold, intolerance to heat, increased hunger, increased thirst Hematologic/Lymphatic: States: no symptoms reported. Denies: blood clots, easy bleeding All other Systems: Reviewed and Negative <Fredis Bernard - Last Filed: 11/21/19 07:46> Past Medical History (General) - Patient Medical History Hx Seizures: No Hx Stroke: No Hx Dementia: No Hx Asthma: No Hx of COPD: No Hx Cardiac Disorders: No Hx Congestive Heart Failure: No Hx Pacemaker: No Hx Hypertension: Yes Hx Thyroid Disease: No Hx Diabetes: No Hx Gastroesophageal Reflux: No Hx Renal Disease: No Hx Cancer: No Hx of HIV: No Hx Hepatitis C: No Hx MRSA: No Surgical History: appendectomy - Vaccination History Hx Tetanus, Diphtheria Vaccination: Yes Hx Influenza Vaccination: No Hx Pneumococcal Vaccination: No Immunizations Up to Date: No - Social History Hx Tobacco Use: No Hx Chewing Tobacco Use: No Hx Alcohol Use: No Hx Substance Use: No Hx Substance Use Treatment: No Hx Depression: No Feels Threatened In Home Enviroment: No Feels Threatened In a Relationship: No Hx Physical Abuse: No Hx Emotional Abuse: No Hx Suspected Abuse: No - Activities of Daily Living Hospice Agency (if applicable):: None - Female History Patient is a Female of Child Bearing Age (10 -59 yrs old): No <Mo Gonzalez - Last Filed: 11/21/19 06:59> Family Medical History - Family History Father Hx Family Hypertension: Yes Hx Family Diabetes: Yes Hx Family Cancer: No Mother Living Status: Still Living Hx Family Asthma: No Hx Family Congestive Heart Failure: No Hx Family Hypertension: Yes Hx Family Stroke: No Hx Cardiac Disease: No Hx Family Diabetes: No Hx Family Cancer: No <Mo Gonzalez Last Filed: 11/21/19 06:59> Physical Exam - Physical Exam General Appearance: Obvious distress, Other - uncomfortable Eye Exam: bilateral normal Ears, Nose, Throat: normal ENT inspection Neck: non-tender, full range of motion Respiratory: no respiratory distress Cardiovascular/Chest: regular rate, rhythm Gastrointestinal/Abdominal: soft, tenderness - RLQ Rectal Exam: deferred Back Exam: CVA tenderness (R) Extremity: normal inspection Neurologic: no motor/sensory deficits Skin Exam: normal color <Mo Gonzalez - Last Filed: 11/21/19 06:59> - Physical Exam General Appearance: Alert, Anxious, Well Developed, Well Groomed, Well Hydrated, Well Nourished, Other Eye Exam: bilateral normal Ears, Nose, Throat: hearing grossly normal, normal ENT inspection Neck: non-tender, full range of motion, supple Respiratory: chest non-tender, lungs clear, normal breath sounds, no respiratory distress Cardiovascular/Chest: normal peripheral pulses, regular rate, rhythm, no edema, no gallop, no JVD, no murmur Gastrointestinal/Abdominal: normal bowel sounds, soft, tenderness Back Exam: no vertebral tenderness, CVA tenderness (R) Extremity: normal range of motion, non-tender, no pedal edema Neurologic: level designer II-XII nml as tested, no motor/sensory deficits, alert, normal mood/affect, oriented x 3 Skin Exam: normal color, warm/dry Lymphatic: no adenopathy <Fredis Bernard - Last Filed: 11/21/19 07:46> Progress - Progress Progress: 11/21/19 02:50 A/P-Flank Pain Abdominal Pain-iv bolus tylenol toradol morphine zofran flomax cbc cmp lipase ua cxr ct abdomen pelvis reassess 11/21/19 03:49 Laboratory Tests 11/21/19 11/21/19 11/21/19 02:42 02:42 02:42 WBC 12.7 H RBC 5.26 Hgb 14.2 Hct 42.4 MCV 80.5 MCH 27.0 MCHC 33.6 RDW 15.2 H Plt Count 256 MPV 9.4 Absolute Neuts (auto) 7.70 H Absolute Lymphs (auto) 3.80 H Absolute Monos (auto) 0.90 H Absolute Eos (auto) 0.30 Absolute Basos (auto) 0.00 Neutrophils % 60.3 Lymphocytes % 30.1 Monocytes % 7.0 Eosinophils % 2.2 Basophils % 0.4 Sodium 142 Potassium 2.9 L Chloride 106 Carbon Dioxide 24 Anion Gap 14.9 BUN 9 Creatinine 0.77 BUN/Creatinine Ratio 11.7 Random Glucose 112 H Serum Osmolality 282.6 Lactic Acid Calcium 8.6 Total Bilirubin 0.7 AST 40 ALT 60 Alkaline Phosphatase 83 Serum Total Protein 7.4 Albumin 3.9 Globulin 3.5 Albumin/Globulin Ratio 1.1 Lipase 25 11/21/19 02:42 WBC RBC Hgb Hct MCV MCH MCHC RDW Plt Count MPV Absolute Neuts (auto) Absolute Lymphs (auto) Absolute Monos (auto) Absolute Eos (auto) Absolute Basos (auto) Neutrophils % Lymphocytes % Monocytes % Eosinophils % Basophils % Sodium Potassium Chloride Carbon Dioxide Anion Gap BUN Creatinine BUN/Creatinine Ratio Random Glucose Serum Osmolality Lactic Acid 2.3 H Calcium Total Bilirubin AST ALT Alkaline Phosphatase Serum Total Protein Albumin Globulin Albumin/Globulin Ratio Lipase PROCEDURE: CT ABDOMEN PELVIS WITHOUT IV CONTRAST CLINICAL HISTORY: r/o stone TECHNIQUE: Contiguous axial images obtained through the abdomen and pelvis without IV contrast. Coronal and sagittal reformatted images were provided. This exam was performed according to our departmental dose-optimization program, which includes automated exposure control, adjustment of the mA and/or kV according to patient size and/or use of iterative reconstruction technique. COMPARISON: 10/08/2019 FINDINGS: Lung bases: Clear Liver: The liver is enlarged. Gallbladder and biliary system: Unremarkable Pancreas: Grossly unremarkable Spleen: Grossly unremarkable Adrenals: Unremarkable Kidneys: Mild right hydronephrosis and proximal hydroureter with periureteral stranding. 5 mm proximal right ureteral calculus (series 2 image 116, series 602 image 97 and series 601 image 128). Bowel: Intramural fat within portions of the small and large bowel which can be seen in the setting of prior inflammation. No obstruction. No appreciable mucosal thickening. Appendix: The appendix is not definitively visualized. Pericecal suture material suggestive of prior appendectomy. No findings to suggest acute appendicitis. Urinary bladder: Unremarkable Reproductive: Unremarkable as visualized Lymph nodes: No pathologically enlarged lymph nodes. Peritoneum: No focal fluid collection. No free air. Vessels: No abdominal aortic aneurysm. Abdominal wall: Tiny fat- containing umbilical hernia. Bones: Multilevel spondylosis. No acute fracture. IMPRESSION: 1. Mildly obstructing 5 mm proximal right ureteral calculus. 2. Other findings as above. Electronically signed by: Jacey Ayon MD 11/21/2019 3:20 AM CDT EXAM DESCRIPTION: Chest,1 View CLINICAL HISTORY: 39 years Male, abdominal pain COMPARISON: None TECHNIQUE: Single AP chest radiograph. FINDINGS: Clear lungs. No pneumothorax or pleural effusion. Normal cardiomediastinal contour. Normal osseous structures. IMPRESSION: 1. No acute cardiopulmonary process. Electronically signed by: Ej Smith MD 11/21/2019 3:20 AM CDT 11/21/19 06:59 Spoke with patient who is open to transfer to [facility] as I spoke to Hospitalist Shayan Marks who recommends transfer to [facility] for obstructing stone. Pt. is open to plan paged Urology signed out to Dr. Bernard - Results/Orders Results/Orders: Laboratory Tests 11/21/19 11/21/19 11/21/19 02:42 02:42 02:42 WBC 12.7 H RBC 5.26 Hgb 14.2 Hct 42.4 MCV 80.5 MCH 27.0 MCHC 33.6 RDW 15.2 H Plt Count 256 MPV 9.4 Absolute Neuts (auto) 7.70 H Absolute Lymphs (auto) 3.80 H Absolute Monos (auto) 0.90 H Absolute Eos (auto) 0.30 Absolute Basos (auto) 0.00 Neutrophils % 60.3 Lymphocytes % 30.1 Monocytes % 7.0 Eosinophils % 2.2 Basophils % 0.4 Sodium 142 Potassium 2.9 L Chloride 106 Carbon Dioxide 24 Anion Gap 14.9 BUN 9 Creatinine 0.77 BUN/Creatinine Ratio 11.7 Random Glucose 112 H Serum Osmolality 282.6 Lactic Acid Calcium 8.6 Total Bilirubin 0.7 AST 40 ALT 60 Alkaline Phosphatase 83 Serum Total Protein 7.4 Albumin 3.9 Globulin 3.5 Albumin/Globulin Ratio 1.1 Lipase 25 Urine Color Urine Appearance Urine pH Ur Specific [place] Urine Protein Urine Glucose (UA) Urine Ketones Urine Blood Urine Nitrite Urine Bilirubin Urine Urobilinogen Ur Leukocyte Esterase Urine RBC Urine WBC Ur Epithelial Cells Amorphous Sediment Urine Bacteria 11/21/19 11/21/19 11/21/19 02:42 04:40 05:34 WBC RBC Hgb Hct MCV MCH MCHC RDW Plt Count MPV Absolute Neuts (auto) Absolute Lymphs (auto) Absolute Monos (auto) Absolute Eos (auto) Absolute Basos (auto) Neutrophils % Lymphocytes % Monocytes % Eosinophils % Basophils % Sodium Potassium Chloride Carbon Dioxide Anion Gap BUN Creatinine BUN/Creatinine Ratio Random Glucose Serum Osmolality Lactic Acid 2.3 H 1.4 Calcium Total Bilirubin AST ALT Alkaline Phosphatase Serum Total Protein Albumin Globulin Albumin/Globulin Ratio Lipase Urine Color Yellow Urine Appearance Cloudy Urine pH 8.5 H Ur Specific [place] 1.020 Urine Protein Negative Urine Glucose (UA) Negative Urine Ketones Negative Urine Blood Small H Urine Nitrite Negative Urine Bilirubin Negative Urine Urobilinogen 0.2 Ur Leukocyte Esterase Negative Urine RBC 5-10 H Urine WBC 0 Ur Epithelial Cells 0 Amorphous Sediment 2+ Urine Bacteria 0 11/21/19 05:34 WBC RBC Hgb Hct MCV MCH MCHC RDW Plt Count MPV Absolute Neuts (auto) Absolute Lymphs (auto) Absolute Monos (auto) Absolute Eos (auto) Absolute Basos (auto) Neutrophils % Lymphocytes % Monocytes % Eosinophils % Basophils % Sodium 141 Potassium 3.7 Chloride 109 Carbon Dioxide 22 Anion Gap 13.7 BUN 9 Creatinine 0.77 BUN/Creatinine Ratio 11.7 Random Glucose 217 H D Serum Osmolality 286.5 Lactic Acid Calcium 8.2 L Total Bilirubin AST ALT Alkaline Phosphatase Serum Total Protein Albumin Globulin Albumin/Globulin Ratio Lipase Urine Color Urine Appearance Urine pH Ur Specific [place] Urine Protein Urine Glucose (UA) Urine Ketones Urine Blood Urine Nitrite Urine Bilirubin Urine Urobilinogen Ur Leukocyte Esterase Urine RBC Urine WBC Ur Epithelial Cells Amorphous Sediment Urine Bacteria <Mo Gonzalez - Last Filed: 11/21/19 06:59> - Progress Progress: Differential diagnosis: UTI, back strain, nephrolithiasis, bowel obstruction among others. 11/21/19 07:41 Long discussion with patient and his . Labs reviewed. No sign of infection. Mild hydronephrosis. Will provide patient with follow-up instructions with urology. Plan discharge home with a prescription for Flomax. Patient takes Naprosyn at home. I will provide him a few Tylenol with codeine for pain control if the Naprosyn is not working. Patient and his understand and agree with plan of care. Fredis Bernard M.D. #[id number] - Results/Orders Results/Orders: 11/21/19 02:40 IV:Start .ONCE Telemetry Q4H 11/21/19 02:42 Pulse Oximetry Assessment DAILY 11/21/19 09:00 Pulse Ox Daily Laboratory Results - last 24 hr 11/21/19 11/21/19 11/21/19 02:42 02:42 02:42 WBC 12.7 H RBC 5.26 Hgb 14.2 Hct 42.4 MCV 80.5 MCH 27.0 MCHC 33.6 RDW 15.2 H Plt Count 256 MPV 9.4 Absolute Neuts (auto) 7.70 H Absolute Lymphs (auto) 3.80 H Absolute Monos (auto) 0.90 H Absolute Eos (auto) 0.30 Absolute Basos (auto) 0.00 Neutrophils % 60.3 Lymphocytes % 30.1 Monocytes % 7.0 Eosinophils % 2.2 Basophils % 0.4 Sodium 142 Potassium 2.9 L Chloride 106 Carbon Dioxide 24 Anion Gap 14.9 BUN 9 Creatinine 0.77 BUN/Creatinine Ratio 11.7 Random Glucose 112 H Serum Osmolality 282.6 Lactic Acid Calcium 8.6 Total Bilirubin 0.7 AST 40 ALT 60 Alkaline Phosphatase 83 Serum Total Protein 7.4 Albumin 3.9 Globulin 3.5 Albumin/Globulin Ratio 1.1 Lipase 25 Urine Color Urine Appearance Urine pH Ur Specific [place] Urine Protein Urine Glucose (UA) Urine Ketones Urine Blood Urine Nitrite Urine Bilirubin Urine Urobilinogen Ur Leukocyte Esterase Urine RBC Urine WBC Ur Epithelial Cells Amorphous Sediment Urine Bacteria 11/21/19 11/21/19 11/21/19 02:42 04:40 05:34 WBC RBC Hgb Hct MCV MCH MCHC RDW Plt Count MPV Absolute Neuts (auto) Absolute Lymphs (auto) Absolute Monos (auto) Absolute Eos (auto) Absolute Basos (auto) Neutrophils % Lymphocytes % Monocytes % Eosinophils % Basophils % Sodium Potassium Chloride Carbon Dioxide Anion Gap BUN Creatinine BUN/Creatinine Ratio Random Glucose Serum Osmolality Lactic Acid 2.3 H 1.4 Calcium Total Bilirubin AST ALT Alkaline Phosphatase Serum Total Protein Albumin Globulin Albumin/Globulin Ratio Lipase Urine Color Yellow Urine Appearance Cloudy Urine pH 8.5 H Ur Specific [place] 1.020 Urine Protein Negative Urine Glucose (UA) Negative Urine Ketones Negative Urine Blood Small H Urine Nitrite Negative Urine Bilirubin Negative Urine Urobilinogen 0.2 Ur Leukocyte Esterase Negative Urine RBC 5-10 H Urine WBC 0 Ur Epithelial Cells 0 Amorphous Sediment 2+ Urine Bacteria 0 11/21/19 05:34 WBC RBC Hgb Hct MCV MCH MCHC RDW Plt Count MPV Absolute Neuts (auto) Absolute Lymphs (auto) Absolute Monos (auto) Absolute Eos (auto) Absolute Basos (auto) Neutrophils % Lymphocytes % Monocytes % Eosinophils % Basophils % Sodium 141 Potassium 3.7 Chloride 109 Carbon Dioxide 22 Anion Gap 13.7 BUN 9 Creatinine 0.77 BUN/Creatinine Ratio 11.7 Random Glucose 217 H D Serum Osmolality 286.5 Lactic Acid Calcium 8.2 L Total Bilirubin AST ALT Alkaline Phosphatase Serum Total Protein Albumin Globulin Albumin/Globulin Ratio Lipase Urine Color Urine Appearance Urine pH Ur Specific [place] Urine Protein Urine Glucose (UA) Urine Ketones Urine Blood Urine Nitrite Urine Bilirubin Urine Urobilinogen Ur Leukocyte Esterase Urine RBC Urine WBC Ur Epithelial Cells Amorphous Sediment Urine Bacteria Vital Signs 11/21/19 11/21/19 11/21/19 02:27 03:18 04:00 Temperature 97 F L Pulse Rate [ 87 78 77 pulse ox] Respiratory 18 18 18 Rate Blood Pressure 148/96 171/111 148/100 [Right Arm] O2 Sat by Pulse 98 98 98 Oximetry 11/21/19 05:35 Temperature Pulse Rate [ 68 pulse ox] Respiratory 18 Rate Blood Pressure 152/100 [Right Arm] O2 Sat by Pulse 98 Oximetry EXAM DESCRIPTION: Chest,1 View CLINICAL HISTORY: 39 years Male, abdominal pain COMPARISON: None TECHNIQUE: Single AP chest radiograph. FINDINGS: Clear lungs. No pneumothorax or pleural effusion. Normal cardiomediastinal contour. Normal osseous structures. IMPRESSION: 1. No acute cardiopulmonary process. Electronically signed by: Ej Smith MD 11/21/2019 3:20 AM PROCEDURE: CT ABDOMEN PELVIS WITHOUT IV CONTRAST CLINICAL HISTORY: r/o stone TECHNIQUE: Contiguous axial images obtained through the abdomen and pelvis without IV contrast. Coronal and sagittal reformatted images were provided. This exam was performed according to our departmental dose-optimization program, which includes automated exposure control, adjustment of the mA and/or kV according to patient size and/or use of iterative reconstruction technique. COMPARISON: 10/08/2019 FINDINGS: Lung bases: Clear Liver: The liver is enlarged. Gallbladder and biliary system: Unremarkable Pancreas: Grossly unremarkable Spleen: Grossly unremarkable Adrenals: Unremarkable Kidneys: Mild right hydronephrosis and proximal hydroureter with periureteral stranding. 5 mm proximal right ureteral calculus (series 2 image 116, series 602 image 97 and series 601 image 128). Bowel: Intramural fat within portions of the small and large bowel which can be seen in the setting of prior inflammation. No obstruction. No appreciable mucosal thickening. Appendix: The appendix is not definitively visualized. Pericecal suture material suggestive of prior appendectomy. No findings to suggest acute appendicitis. Urinary bladder: Unremarkable Reproductive: Unremarkable as visualized Lymph nodes: No pathologically enlarged lymph nodes. Peritoneum: No focal fluid collection. No free air. Vessels: No abdominal aortic aneurysm. Abdominal wall: Tiny fat- containing umbilical hernia. Bones: Multilevel spondylosis. No acute fracture. IMPRESSION: 1. Mildly obstructing 5 mm proximal right ureteral calculus. 2. Other findings as above. Electronically signed by: Jacey Ayon MD 11/21/2019 3:20 AM CDT <Fredis Bernard - Last Filed: 11/21/19 07:46> Departure <Mo Gonzalez - Last Filed: 11/21/19 06:59> - Departure Time of Disposition: 07:43 Diet: resume usual diet Activity: increase activity as tolerated <Fredis Bernard - Last Filed: 11/21/19 07:46> - Departure Clinical Impression: Hydronephrosis with renal and ureteral calculus obstruction Disposition: Discharge to Home or Self Care Condition: Good Departure Forms: ED Discharge - Pt. Copy, Patient Portal Self Enrollment Referrals: Niki Fleming FNP [Primary Care Provider] - 1-5 Days LASHAE SUMNER MD [Referring] - 1-5 Days Prescriptions: Tamsulosin [Flomax] 0.4 mg PO QPM #10 cap Home Medications: Ambulatory Orders Lisinopril 20 mg PO QAM #30 tab 07/27/16 amLODIPine BESYLATE [Norvasc] 5 mg PO QPM #30 tab 07/27/16 Polyvinyl Alcohol [Artificial Tears] 1.4 % OP QID #1 bottle 12/11/18 Prednisone 60 mg PO DAILY 7 Days #21 tab 12/11/18 Valacyclovir HCl [Valtrex] 1 gm PO TID 7 Days #21 tab 12/11/18 Ciprofloxacin HCl [Cipro] 500 mg PO BID 7 Days #14 tab 10/08/19 Ondansetron Odt [Zofran ODT] 8 mg PO Q8H PRN 5 Days #10 tab 10/08/19 Tamsulosin [Flomax] 0.4 mg PO QD 7 Days #7 cap 10/08/19 Tamsulosin [Flomax] 0.4 mg PO QPM #10 cap 11/21/19
--- NOTE | 2019-11-21 03:22 | CT ---
PROCEDURE: CT ABDOMEN PELVIS WITHOUT IV CONTRAST CLINICAL HISTORY: r/o stone TECHNIQUE: Contiguous axial images obtained through the abdomen and pelvis without IV contrast. Coronal and sagittal reformatted images were provided. This exam was performed according to our departmental dose-optimization program, which includes automated exposure control, adjustment of the mA and/or kV according to patient size and/or use of iterative reconstruction technique. COMPARISON: 10/08/2019 FINDINGS: Lung bases: Clear Liver: The liver is enlarged. Gallbladder and biliary system: Unremarkable Pancreas: Grossly unremarkable Spleen: Grossly unremarkable Adrenals: Unremarkable Kidneys: Mild right hydronephrosis and proximal hydroureter with periureteral stranding. 5 mm proximal right ureteral calculus (series 2 image 116, series 602 image 97 and series 601 image 128). Bowel: Intramural fat within portions of the small and large bowel which can be seen in the setting of prior inflammation. No obstruction. No appreciable mucosal thickening. Appendix: The appendix is not definitively visualized. Pericecal suture material suggestive of prior appendectomy. No findings to suggest acute appendicitis. Urinary bladder: Unremarkable Reproductive: Unremarkable as visualized Lymph nodes: No pathologically enlarged lymph nodes. Peritoneum: No focal fluid collection. No free air. Vessels: No abdominal aortic aneurysm. Abdominal wall: Tiny fat-containing umbilical hernia. Bones: Multilevel spondylosis. No acute fracture. IMPRESSION: 1. Mildly obstructing 5 mm proximal right ureteral calculus. 2. Other findings as above. Electronically signed by: Jacey Ayon MD 11/21/2019 3:20 AM CDT
--- NOTE | 2019-11-21 03:22 | RAD ---
EXAM DESCRIPTION: Chest,1 View CLINICAL HISTORY: 39 years Male, abdominal pain COMPARISON: None TECHNIQUE: Single AP chest radiograph. FINDINGS: Clear lungs. No pneumothorax or pleural effusion. Normal cardiomediastinal contour. Normal osseous structures. IMPRESSION: 1. No acute cardiopulmonary process. Electronically signed by: Ej Smith MD 11/21/2019 3:20 AM CDT
[2019-11-21] MEDS ORDERED: POTASSIUM CHLORIDE ELIXIR 20 MEQ/15 ML UD PO ONE (03:53)
[2019-11-21] MEDS ORDERED: cefTRIAXone SODIUM 1 GM in SODIUM CHL 0.9% 50ML MIN-BAG+ 50 ML IVPB ONE (07:09)
[2019-11-21] MEDS ORDERED: LIDOCAINE 1% 2 ML VIAL INJ ONE (07:22)
[2019-11-21 08:03] VITALS: BP 166/97; O2SAT 99
== END 2019-11-21 08:03 | disposition home or self-care (01) ==
LOC: ER 02:17
DX: N13.2 Hydronephrosis with renal and ureteral calculous obstruction (principal); R11.2 Nausea with vomiting, unspecified; I10 Essential (primary) hypertension; Z90.49 Acquired absence of other specified parts of digestive tract; Z79.899 Other long term (current) drug therapy
CPT/HCPCS: 36415; 71045; 74176; 80048; 80053; 81001; 83605; 83690; 85025; J0696; J1885; J2270; J2405; J7030; J7050